=== PATIENT | male | born 1980 | race Caucasian/White ===

== ENCOUNTER 2017-06-19 07:06 | Emergency (ER) | payer OTHER ==
[2017-06-19 07:18] VITALS: BP 158/90
--- NOTE | 2017-06-19 08:38 | UC ---
Lincoln Porter Nilda, scribed for Cristiano Mathis MD on 06/19/17 at 0716 . Throat Pain/Nasal Yonatan HPI - HPI Summary HPI Summary: This patient is a 36 year old M [place] [facility] [place] chief complaint of constant sinus pressure and congestion for the past 2 weeks. The patient rates the pain 6/10 in severity. Symptoms aggravated and alleviated by nothing. Patient reports headache (forehead and behind left eye). - History of Current Complaint Stated Complaint: SINUS CONGESTION, AND FACIAL PAIN Time Seen by Provider: 06/19/17 07:10 Hx Obtained From: Patient Onset/Duration: Sudden Onset, Lasting Weeks Severity: Moderate Pain Intensity: 4 Pain Scale Used: 0-10 Numeric Associated Signs & Symptoms: Positive: Other - headache, sinus pressure and congestion - Allergies/Home Medications Allergies/Adverse Reactions: Allergies Allergy/AdvReac Type Severity Reaction Status Date / Time No Known Allergies Allergy Verified 06/19/17 07:15 PMH/Surg Hx/FS Hx/Imm Hx Previously Healthy: Yes - Surgical History Surgical History: Yes Surgery Procedure, Year, and Place: left ankle reconstructive surgery 2010 - Family History Known Family History: Negative: Cardiac Disease, Hypertension, Diabetes - Social History Alcohol Use: None Substance Use Type: None Smoking Status (MU): Current Every Day Smoker Type: Cigarettes Amount Used/How Often: 1/2-1 pdd Length of Time of Smoking/Using Tobacco: 15 years Have You Smoked in the Last Year: Yes Review of Systems ENT: Sinus Congestion, Sinus Pain/Tenderness Neurological: Headache All Other Systems Reviewed And Are Negative: Yes Physical Exam Triage Information Reviewed: Yes Vital Signs: Initial Vital Signs Temp 97.4 F 06/19/17 07:16 Pulse 76 06/19/17 07:16 Resp 18 06/19/17 07:16 BP 158/90 06/19/17 07:16 Pulse Ox 99 06/19/17 07:16 Vital Signs Reviewed: Yes - Additional Comments VITAL SIGNS: Reviewed. GENERAL: Patient is a well developed and nourished M who is lying comfortable in the stretcher. Patient is not in any acute respiratory distress. HEAD AND FACE: Normocephalic EYES: PERRLA, EOMI x 2. EARS: Hearing grossly intact. MOUTH: Pharyngeal erythema, Swelling meatus of left nostril, Tenderness in left maxillary and ethmoid sinuses NECK: Supple, trachea is midline, no adenopathy, no JVD, no carotid bruit. CHEST: Symmetric, no tenderness at palpation LUNGS: Clear to auscultation bilaterally. No wheezing or crackles. CVS: Regular rate and rhythm, S1 and S2 present, no murmurs or gallops appreciated. ABDOMEN: Soft, non-tender. Bowel sounds are normal. No abdominal abnormal pulsations. EXTREMITIES: Full ROM in all major joints, no edema, no cyanosis or clubbing. NEURO: Alert and oriented x 3. No acute neurological deficits. Speech is normal and follows commands. SKIN: Dry and warm Throat Pain/Nasal Course/Dx - Course Assessment/Plan: This patient is a 36 year old M [place] [facility] [place] chief complaint of constant sinus pressure and congestion for the past 2 weeks. The patient rates the pain 6/10 in severity. Symptoms aggravated and alleviated by nothing. Patient reports headache (forehead and behind left eye). Medications given. The patient is hemodynamically stable, alert and oriented x3. I discussed all the findings and test results with the patient. Pt was instructed to return to the urgent care or go to ER immediately if any of the symptoms return or worsens. Plan of care was discussed with the patient and pt understands and agrees. All questions were answered to patient satisfaction. There were no further complaints or concerns. - Differential Dx/Diagnosis Differential Diagnosis/HQI/PQRI: Influenza, Laryngitis, Otitis Media, Pharyngitis, Sinusitis, Tonsillitis, URI Provider Diagnoses: Acute sinusitis Discharge - Discharge Plan Condition: Stable Disposition: HOME Prescriptions: Amoxicillin PO (*) [Amoxicillin 875 MG (*)] 875 mg PO BID #20 tab Patient Education Materials: Sinusitis (ED) Referrals: No Primary Care Phys,NOPCP [Primary Care Provider] - Additional Instructions: Take medications as instructed Increase your fluid intake Return to the UC if symptoms worsen The documentation as recorded by the Lincoln rich Nilda accurately reflects the service I personally performed and the decisions made by me, Cristiano Mathis MD.
== END 2017-06-19 07:26 | disposition home or self-care (01) ==
LOC: UCEAST 07:06
DX: J01.90 Acute sinusitis, unspecified (principal); F17.210 Nicotine dependence, cigarettes, uncomplicated
CPT/HCPCS: 99212; G0463

== ENCOUNTER 2017-10-10 12:58 | Emergency (ER) | payer OTHER ==
[2017-10-10] MEDS ORDERED: NS 0.9% 1000 ML* 1,000 ML IV ONE (13:13)
[2017-10-10] MEDS ORDERED: Morphine VIAL* 4 MG/ML VIAL (1 ml vial) IV ONE ×3 (13:44→14:41)
--- NOTE | 2017-10-10 13:53 | RAD ---
INDICATION: Left upper extremity injury after falling off a roof COMPARISON: None TECHNIQUE: PA and lateral views of the chest were obtained. FINDINGS: The heart and mediastinum are normal in size and contour. The lungs are grossly clear. There is no evidence of large pleural effusion. Visualized bones are normal for the patient's age. There is no radiographic evidence of free air beneath the diaphragm IMPRESSION: No radiographic evidence of acute cardiopulmonary disease.
--- NOTE | 2017-10-10 14:00 | RAD ---
INDICATION: Left upper extremity pain after falling off of a roof TECHNIQUE: 2 views of the left forearm and 3 views of the left wrist were obtained. FINDINGS: The left humerus is intact. Within the limited AP and lateral views provided the left shoulder and elbow appear to be intact and appropriately aligned. There is a comminuted impacted fracture of the distal left radius. The carpal bones are displaced dorsally relative to the distal radius. The lunate bone is angulated in the dorsal direction on the lateral view. There is cortical irregularity along the dorsal margin of the triquetrum. Although the pisiform appears to be in appropriate expected location the capitate and hamate appear to be displaced in the dorsal direction. IMPRESSION: 1. Comminuted and dorsally angulated fracture involving the distal left radius. 2. There is likely fracture along the proximal dorsal margin of the triquetrum. 3. Displacement of the carpal bones dorsally relative to the distal forearm bones indicates traumatic rupture of ligamentous attachments. If the patient's symptoms persist, follow-up imaging is recommended.
--- NOTE | 2017-10-10 14:16 | ED ---
Maria Dolores Porter Julia, scribed for Cristiano Mathis MD on 10/10/17 at 1325 . Adult Trauma - HPI Summary HPI Summary: This patient is a 37 year old M presenting to [facility] accompanied by his father after falling 18-20 feet off a roof onto his left side on concrete. He was not wearing a harness and was able to walk after the fall. He reports left arm pain , chest pain, right sided abdominal pain, and mild SOB. Denies LOC, neck pain, or head injury. - History of Current Complaint Stated Complaint: LT ARM INJURY Hx Obtained From: Patient Mechanism of Injury: Fall - from 18-20 ft off a roof Ambulatory at the Scene: Yes Loss of Consciousness: no loss of consciousness Force: High Restraints: None Onset/Duration: Started Minutes Ago Onset of Pain: Immediate Location: Chest, Abdomen/Pelvis, Extremities Alleviating Factor(s): Nothing Associated Signs & Symptoms: Positive: SOB, Chest Pain, Abdominal Pain. Negative: Loss of Consciousness - Allergy/Home Medications Allergies/Adverse Reactions: Allergies Allergy/AdvReac Type Severity Reaction Status Date / Time No Known Allergies Allergy Verified 06/19/17 07:15 PMH/Surg Hx/FS Hx/Imm Hx Endocrine/Hematology History: Denies: Hx Diabetes, Hx Thyroid Disease Cardiovascular History: Denies: Hx Hypertension Respiratory History: Denies: Hx Asthma, Hx Chronic Obstructive Pulmonary Disease (COPD) GI History: Denies: Hx Ulcer - Surgical History Surgery Procedure, Year, and Place: left ankle reconstructive surgery 2010 Infectious Disease History: Denies: Hx Hepatitis, Hx Human Immunodeficiency Virus (HIV) - Family History Known Family History: Positive: Cardiac Disease - Social History Alcohol Use: None Substance Use Type: Reports: None Smoking Status (MU): Current Every Day Smoker Type: Cigarettes Amount Used/How Often: 1/2-1 pdd Length of Time of Smoking/Using Tobacco: 15 years Have You Smoked in the Last Year: Yes Review of Systems Positive: Chest Pain Positive: Shortness Of Breath Positive: Abdominal Pain Musculoskeletal: Negative - neck pain Positive: Myalgia - R arm Negative: Headache, Syncope All Other Systems Reviewed And Are Negative: Yes Physical Exam - Summary Physical Exam Summary: VITAL SIGNS: Reviewed. GENERAL: Patient is a well-developed and nourished male who is lying comfortable in the stretcher. Patient is not in any acute respiratory distress. HEAD AND FACE: No signs of trauma. No ecchymosis, hematomas or skull depressions. No sinus tenderness. EYES: PERRLA, EOMI x 2, No injected conjunctiva, no nystagmus. EARS: Hearing grossly intact. Ear canals and tympanic membranes are within normal limits. MOUTH: Oropharynx within normal limits. NECK: Supple, trachea is midline, no adenopathy, no JVD, no carotid bruit, no c- spine tenderness, neck with full ROM. CHEST: Symmetric, left sided chest tenderness LUNGS: Clear to auscultation bilaterally. No wheezing or crackles. CVS: Regular rate and rhythm, S1 and S2 present, no murmurs or gallops appreciated. ABDOMEN: Soft, right sided abdominal tenderness. No signs of distention. No rebound no guarding, and no masses palpated. Bowel sounds are normal. EXTREMITIES: Tenderness and swelling of left forearm, no deformity NEURO: Alert and oriented x 3. No acute neurological deficits. Speech is normal and follows commands. SKIN: Dry and warm Triage Information Reviewed: Yes Vital Signs On Initial Exam: Initial Vitals BP 144/79 10/10/17 13:37 Vital Signs Reviewed: Yes Diagnostics - Vital Signs Vital Signs Pulse BP Pulse Ox 10/10/17 13:42 73 98 10/10/17 13:37 144/79 - Laboratory Lab Statement: Any lab studies that have been ordered have been reviewed, and results considered in the medical decision making process. Adult Trauma Course/Dx - Course Assessment/Plan: The patient fell from approximately 18-20 feet above the ground onto left side. He doesnt have any head trauma or neck trauma. In physical exam there is no C spine tenderness, therefore I did not place and c- collar. FAST exam is negative. Since the patient has chest pain and abdominal pain and the toro of the trauma I believe patient should be transfer to a trauma center for further assessment even though the fast exam is likely negative. Discussed with Vic Ruiz MD at [facility] who accepted for admission at 13:20. CXR is negative for PTX. Humerus XR is negative for fracture. Forearm XR reveals distal radial fracture and he was placed in wrist splint. Vital signs are stable. He has two IV assesses with fluids running; therefore I believe he is safe for transport via ambulance. Before transfer patient is hemodynamically stable. Patient agrees to be transferred to a trauma center. - Diagnoses Provider Diagnoses: Distal radial fracture, Trauma - Critical Care Time Critical Care Time: 30-74 min Discharge - Sign-Out/Discharge Documenting (check all that apply): Discharge/Admit/Transfer - transfer - Discharge Plan Condition: Stable Disposition: TRANS HIGHER LVL OF CARE FAC Referrals: No Primary Care Phys,NOPCP [Primary Care Provider] - - Billing Disposition and Condition Condition: STABLE Disposition: Trans Higher Lvl of Care Fac The documentation as recorded by the Maria Dolores rich Julia accurately reflects the service I personally performed and the decisions made by Del ohara Walter, MD.
[2017-10-10 14:47] VITALS: BP 144/91
== END 2017-10-10 14:47 | disposition short-term general hospital (02) ==
LOC: ED 12:58
DX: S52.502A Unspecified fracture of the lower end of left radius, initial encounter for closed fracture (principal); R06.02 Shortness of breath; R07.9 Chest pain, unspecified; R10.9 Unspecified abdominal pain; F17.210 Nicotine dependence, cigarettes, uncomplicated; W11.XXXA Fall on and from ladder, initial encounter; Y92.9 Unspecified place or not applicable
CPT/HCPCS: 71046; 99284; J2270

== ENCOUNTER 2017-10-18 08:36 | Day surgery (SDC) | payer OTHER ==
[~2017-10-18 08:36] MED LIST: Buffered Lidocaine 0.9% SYRIN* 5 ML/SYR SYRINGE INTRADERM ONE; Bupivacaine 0.5% SDV PF* 30ML VIAL ONE; Famotidine IV* 10 MG/ML 2 ML (20 mg) IV ONE
[2017-10-18] MEDS ORDERED: Buffered Lidocaine 0.9% SYRIN* 5 ML/SYR SYRINGE ONE (08:43)
[2017-10-18] MEDS ORDERED: ceFAZolin 2 GM PREMIX (*) 2 GM/50 ML BAG IVPB ONE (08:43)
[2017-10-18] MEDS ORDERED: Famotidine IV* 10 MG/ML 2 ML (20 mg) ONE (08:43)
[2017-10-18] MEDS ORDERED: Midazolam* 1 MG/ML 5 ML VIAL (5 MG) ONE (11:34)
[2017-10-18] MEDS ORDERED: fentaNYL* 50 MCG/ML 2 ML VIAL (100 MCG VIAL) ONE ×3 (11:34→12:54)
[2017-10-18] MEDS ORDERED: Ketorolac INJ* 30 MG/ML 1 ML VIAL ONE (12:54)
[2017-10-18] MEDS ORDERED: DiMENhydriNATE IV* 50 MG/ML VIAL ONE (12:54)
[2017-10-18] MEDS ORDERED: Propofol* 10 MG/ML 20 ML BTL IV PUSH ONE (12:54)
[2017-10-18] MEDS ORDERED: Dexamethasone IV* 4 MG/ML 1 ML (4 MG) ONE (12:54)
[2017-10-18] MEDS ORDERED: Midazolam* 1 MG/ML 2 ML VIAL (2 MG) ONE (12:58)
[2017-10-18] MEDS ORDERED: HYDROmorphone INJ* 0.5 MG/0.5 ML SYRINGE ONE ×3 (13:21→16:01)
[2017-10-18] MEDS ORDERED: HYDROmorphone INJ* 1 MG/ML CARPUJECT SYRINGE IV PRN (14:22)
[2017-10-18] MEDS ORDERED: Naloxone* 0.4 MG/ML 1 ML VIAL IV PRN (14:22)
[2017-10-18] MEDS ORDERED: oxyCODONE/Acetamin 5/325 MG* TAB PO PRN (14:22)
[2017-10-18] MEDS ORDERED: Ondansetron INJ* 2 MG/ML VIAL IV PRN (14:23)
[2017-10-18 17:50] VITALS: BP 162/99
--- NOTE | 2017-10-19 07:11 | RAD ---
INDICATION: Traumatic fracture of the left wrist, operative reduction and internal fixation. COMPARISON: Comparison is made with a prior x-ray study of the left wrist from October 12, 2017. TECHNIQUE: 1.26 seconds of intermittent fluoroscopic guidance were provided and 3 spot films of the left wrist were obtained in the operating room. FINDINGS: The films demonstrate placement of metallic plates along the dorsal and volar aspect of the distal radius transfixed with multiple screws spanning the fracture fragments. IMPRESSION: INTRAOPERATIVE CONTROL FILMS. CPT II Codes: G9500
--- NOTE | 2017-10-19 14:29 | OP ---
DATE OF OPERATION: 10/18/17 - [facility] DATE OF : 82 SURGEON: Jose Langford MD JD EDWARDS CONSULTANT: YESENIA Orellana. An optometrist assistant was needed for the procedure to aid in positioning of the arm and retraction. ANESTHESIOLOGIST: Dr. Morillo. ANESTHESIA: General. PRE-OP DIAGNOSIS: Displaced very distal extremely comminuted intraarticular left distal radius fracture. POST-OP DIAGNOSIS: Displaced very distal extremely comminuted intraarticular left distal radius fracture. OPERATIVE PROCEDURE: Open reduction internal fixation, left intraarticular, mini fragments distal radius fracture. Please note that this operation was substantially more difficult than typical distal intraarticular distal radius fracture requiring both volar and dorsal approaches, volar and dorsal plating. ESTIMATED BLOOD LOSS: 15 mL. COMPLICATIONS: None. FINDINGS: See above and below. DESCRIPTION OF PROCEDURE: Zac was seen in the preoperative holding area. The correct side, site, and procedure were identified. We came back to the operating room where the arm was prescrubbed and prepped and draped and a time- out was performed. I began by exsanguinating the arm with the Esmarch and the tourniquet was inflated to 250 mmHg. I then made a longitudinal incision over the volar aspect of the wrist. Dissection was carried down to the FCR tendon sheath. This was opened. The tendon was retracted ulnarly. The subsheath was opened. The FPL tendon was retracted ulnarly and the pronator quadratus was released off the radial aspect of the distal radius. Distally, it was torn apart. The fracture came very distal. It came back a little bit more proximal with respect to the volar ulnar fragment centrally and radially, it was quite distal. I went ahead and irrigated out and removed all the fracture hematoma. Once I had a nice clean fracture edges and I had taken very care to preserve the last couple of millimeters of volar capsular ligaments, I was able to place the hand in the Arthrex hand rand and applied 10 pounds of inline traction. The [place] was used to disimpact the volar ulnar fragment and volar fragments to rotate at 90 degrees with the articular surface facing the dorsal aspect of the wrist. Once I disimpacted these and rotated them back into place, I was able to bring in my Synthes distal radius plate and screws. I had both the standard volar plates available as well as the volar rim plate. Ultimately, I thought that on the ulnar aspect it came back proximal enough, so I did not need to use the volar rim plate. I went ahead and put my volar plate in place. I pinned it into place. I placed one 10-mm locking screw in that volar ulnar fragment just to hold that fragment apposed to the bone. The dorsal half of the joint was still very mal-reduced and the articular surface did not have secondary congruence and so therefore we had to open up the joint dorsally. At this point, the forearm was rotated and pronated. I made a longitudinal incision over the dorsum of the wrist. Full-thickness flaps were raised up the extensor retinaculum. The extensor retinaculum was opened over the third dorsal compartment. The EPL tendon was transposed. Subperiosteal flaps were created and fourth dorsal compartment tendons were retracted ulnarly. Second dorsal compartment tendons were retracted radially. I made a transverse capsulotomy just off the distal aspect of the distal radius. The fracture hematoma was again irrigated out and removed. The joint was irrigated out until I had a good view of the articular pieces. The biggest issue was that they were severely impacted, so I went ahead and disimpacted those. Once I had that done and then back up in the reduced position, there was quite a bit of void left and nothing to really hold that dorsal piece in the reduced position. I took 15 mL of cancellous allograft chips. These were crushed up and packed into the void to aid in provisional fixation to keep that dorsal piece wrapped up into place. I then closed the cortical piece back dorsally over the allograft. I wanted to buttress everything in place, so I took a Synthes dorsal distal radius L-shaped plate and placed this into the appropriate location. This was clamped into place. I did a very nice job buttressing the fragments. I then placed a couple of cortical screws proximally to secure the buttress plate. Ultimately, this held the dorsal pieces in quite nicely into the appropriate location. At this point, I turned my attention back into the volar wound. I re-exposed the volar aspect, the pins I had placed previously to hold the plate in place and I had clipped those pins in order to allow myself to work dorsally. I went ahead and removed those pins with the needle regional tanker truck driver. The position of the plate was adjusted as it was sitting too distal. I did take the screw out that I had put in distally and then moved the plate a little more proximally and then pinned it into place. When I had this nicely reduced, I went ahead and clamped one plate into place proximally with a lobster claw clamp. I then used the straight nominal angle guide to place my ulnar for screws. The variable angle guide was used to place the radial styloid screw aiming the screw up towards the tip of the radius styloid. Really, the bone was so fragmented on the radial third that there was really was not much purchase at all on any of the screws. That radial side was simply extremely comminuted. I had good bone to work with the ulnar sided screws. At this point, I went ahead and placed my two more proximal screws as the plate was in good position. I then brought in my mini C- arm fluoroscopy. Ultimately, when I had placed the two more radial-sided screws , it had displaced my dorsal radial scaphoid facet piece, which was a decent size fragment. I therefore backed up my volar screws about half length of screw each. At this point, the tourniquet was at 2-1/2 hours, so we went ahead and let the tourniquet down. We held some compression on the wounds for about 5 to 10 minutes. We then decided to work without the tourniquet up. I went ahead and reduced the dorsal pieces again. I pinned them into place at this time. I then redrilled and replaced my screws through the distal row of the volar plate. The dorsal ulnar fragment was quite rotated. It was not really to take his screw, but I was able to suture fix it with FiberWire to my dorsal plate and around that dorsal ulnar fragment now rotated back into place nicely. That was an 0 FiberWire suture. The fixation on the volar lip was augmented with an 0 FiberWire suture, sewn up into the capsular ligament and down around the plate proximally so as to try to prevent any volar escape. At this point, we got plantar fluoroscopic imaging, everything was looking very nice, the reduction was quite nice. The articular surface was nicely congruent. The direct observation of the articular surface through the dorsal capsulotomy showed nice articular reduction. Everything was irrigated out. The extensor retinaculum was closed dorsally with 4-0 Ethibond sutures. The pronator quadratus was reapproximated with 2-0 Vicryl sutures. Skin was closed with baudilio. The wounds were infiltrated with 0.25% plain Marcaine. The wounds were dressed with Xeroform, 4x4s, sterile Webril, and a dorsal and volar plaster slabs were applied and a cock-up splint was applied. Tourniquet was never reinflated after it was let down. The hand was nice and pink. He was awoken up and taken to the recovery room in stable condition. [id number]/[facility] #: [id number] LISA
== END 2017-10-18 17:58 | disposition home or self-care (01) ==
LOC: OR 08:36
PROVIDERS: ATTEND Orthopaedic Surgery Hand Surgery
DX: S52.572A Other intraarticular fracture of lower end of left radius, initial encounter for closed fracture (principal); I10 Essential (primary) hypertension; F17.210 Nicotine dependence, cigarettes, uncomplicated; X58.XXXA Exposure to other specified factors, initial encounter
CPT/HCPCS: 76000; C1713; C1776; J0690; J1100; J1170; J1240; J1885; J2250; J2704; J3010

== ENCOUNTER → 2018-02-21 14:45 | Day surgery (SDC) | payer OTHER ==
[~2018-02-21 14:45] MED LIST changes: +Buffered Lidocaine 0.9% SYRIN* 5 ML/SYR SYRINGE ONE; +Bupivacaine 0.25% SDV* 30 ML ONE; -Bupivacaine 0.5% SDV PF* 30ML VIAL ONE; +Dexamethasone IV* 4 MG/ML 1 ML (4 MG) IV SLOW PU ONE; +Dexamethasone IV* 4 MG/ML 1 ML (4 MG) ONE; +DiMENhydriNATE IV* 50 MG/ML VIAL IV PUSH PRN; +Famotidine IV* 10 MG/ML 2 ML (20 mg) ONE; +HYDROmorphone INJ1* 1 MG/ML SYRINGE IV PRN; +Ketorolac INJ* 30 MG/ML 1 ML VIAL ONE; +Levalbuterol 0.63MG/3ML NEB* UNIT OF USE INH ONE; +Levalbuterol 0.63MG/3ML NEB* UNIT OF USE INH SCH; +Lidocaine 2% PF * 5 ML VIAL ONE; +Midazolam* 1 MG/ML 5 ML VIAL (5 MG) ONE; +Naloxone* 0.4 MG/ML 1 ML VIAL IV PRN; +Ondansetron INJ* 2 MG/ML VIAL IV PRN; +Ondansetron INJ* 2 MG/ML VIAL ONE; +Propofol* 10 MG/ML 20 ML BTL IV PUSH ONE; +ceFAZolin 2 GM PREMIX in ORs 2 GM/50 ML BAG IVPB ONE; +fentaNYL* 50 MCG/ML 2 ML VIAL (100 MCG VIAL) IV PRN; +fentaNYL* 50 MCG/ML 2 ML VIAL (100 MCG VIAL) ONE; +fentaNYL* 50 MCG/ML 5 ML VIAL (250 MCG VIAL) ONE; +oxyCODONE/Acetamin 5/325 MG* TAB ONE; +oxyCODONE/Acetamin 5/325 MG* TAB PO PRN
[2018-02-21 15:46] VITALS: BP 134/92
--- NOTE | 2018-02-28 09:54 | OP ---
OPERATIVE REPORT: DATE OF OPERATION: 02/21/18 DATE OF : 82 SURGEON: Jose Langford MD REAMING MACHINE TENDER: YESENIA Orellana ANESTHESIA: General. PRE-OP DIAGNOSIS: Retained very distal and symptomatic hardware, left distal radius including both d orsal and volar plates. POST-OP DIAGNOSIS: Retained very distal and symptomatic hardware, left distal radius including both dorsal and volar plates. OPERATIVE PROCEDURE: 1. Removal of left distal radius volar plate and screws. 2. Removal of left distal radius dorsal plate and screws through a separate incision. INDICATIONS: Zac had a severely comminuted high-energy distal radius fracture treated with open r eduction internal fixation several months ago. The fracture is now healed. The plates are so distal that he is at very high risk for tendon rupture as well as they do cause some discomfort, so we talk ed about risks and benefits and we decided to come back and remove the plates and screws. He underst ands that both incisions will have to be reopened as there is a plate on the volar side of the bone a nd another plate on the dorsal side of the bone. ESTIMATED BLOOD LOSS: 2 mL. COMPLICATIONS: None. FINDINGS: See above and below. DESCRIPTION OF PROCEDURE: Zac was seen in the preoperative holding area. The correct site, side, and procedure were identified. We came back to the operating room where the arm was prepped and guero ped in the usual fashion. A time-out was performed. I first reopened his prior volar incision over the FCR tendon. Dissection was carried down. The FCR tendon was freed up from any adhesions and retracted ulnarly. The scarred-in subsheath was reopened . The FPL tendon was retracted ulnarly. The pronator was again released off its radial margin and t eed back distally. The plate was exposed. A screwdriver was used to remove all the screws uneventfu lly. The small osteotome was used to free up the plate and this was removed. All the sharp bony edg es were excised with a rongeur. I then irrigated out the wound. The pronator was reapproximated wit h 3-0 Vicryl suture. The skin was closed with 3-0 Monocryl suture. I then turned my attention to the dorsum of the wrist. I reopened his dorsum incision which was a lo ngitudinal midline incision. Dissection was carried down and full thickness flaps were raised off th e scarred retinaculum. The prior suture line was identified and I reopened the extensor retinaculum in the same location where I had opened it prior. The EPL tendon was already transposed. I went ahe ad and exposed the plate dorsally. The screwdriver was used to remove all the screws and then the os teotome was used to remove the plate. Again, the bony edges were all cleaned up and debrided with a rongeur back to a nice smooth flat bony surface. Everything was looking good at this point, so we irr igated out the wound. The retinaculum was re-closed with 4-0 Prolene suture, the skin was closed wit h 3-0 Monocryl suture and Steri-Strips. All the operative areas were infiltrated with long-acting lo nereyda anesthetic. Wounds were then dressed and a cockup wrist splint was applied. The tourniquet was deflated. He was taken to the recovery room in stable condition. [id number]/[id number] #: [id number]
== END | disposition home or self-care (01) ==
LOC: OR 14:45
PROVIDERS: ATTEND Orthopaedic Surgery Hand Surgery
DX: T84.84XA Pain due to internal orthopedic prosthetic devices, implants and grafts, initial encounter (principal); Y83.1 Surgical operation with implant of artificial internal device as the cause of abnormal reaction of the patient, or of later complication, without mention of misadventure at the time of the procedure; Z72.0 Tobacco use; Z68.30 Body mass index [BMI] 30.0-30.9, adult; S52.572D Other intraarticular fracture of lower end of left radius, subsequent encounter for closed fracture with routine healing; X58.XXXD Exposure to other specified factors, subsequent encounter; Y92.9 Unspecified place or not applicable
CPT/HCPCS: 88300; A9270-GY; J0690; J1100; J1885; J2250; J2405; J2704; J3010

== ENCOUNTER 2018-07-05 16:49 | Emergency (ER) | payer OTHER ==
[2018-07-05 16:57] VITALS: BP 168/105
--- NOTE | 2018-07-05 17:59 | ED ---
Respiratory - HPI Summary HPI Summary: 37 yr old male with complaint of runny nose, post nasal drip, coughing, muscle aches and fatigue. He feels that he came down with the flu last week, but he is concerned about the persistent productive cough and left maxillary sinus pressure and pain. He has pain with coughing heavily. No SOB. No other complaints. - History of Current Complaint Chief Complaint: UCGeneralIllness Stated Complaint: COUGH Time Seen by Provider: 07/05/18 17:26 Pain Intensity: 0 - Allergy/Home Medications Allergies/Adverse Reactions: Allergies Allergy/AdvReac Type Severity Reaction Status Date / Time enoxaparin [From Lovenox] Allergy SEVERE Verified 07/05/18 16:57 HEADACHES Home Medications: Home Medications Ibuprofen TAB* [Advil TAB*] 400 mg PO Q6H PRN 07/05/18 [History Confirmed ] PMH/Surg Hx/FS Hx/Imm Hx Endocrine/Hematology History: Denies: Hx Diabetes, Hx Thyroid Disease Cardiovascular History: Reports: Hx Hypertension - elevated at times- no medication for Denies: Hx Pacemaker/ICD Respiratory History: Denies: Hx Asthma, Hx Chronic Obstructive Pulmonary Disease (COPD) GI History: Denies: Hx Ulcer History: Reports: Hx Kidney Stones - AT AGE 24 Sensory History: Reports: Hx Contacts or Glasses - GLASSES Denies: Hx Hearing Aid Opthamlomology History: Reports: Hx Contacts or Glasses - GLASSES - Surgical History Surgery Procedure, Year, and Place: left ankle reconstructive surgery 2010. LEFT WRIST SURGERY Hx Anesthesia Reactions: No Infectious Disease History: No Infectious Disease History: Denies: Hx Hepatitis, Hx Human Immunodeficiency Virus (HIV), Traveled Outside the [place] in Last 30 Days - Family History Known Family History: Positive: Cardiac Disease Negative: Hypertension, Diabetes - Social History Occupation: Employed Full-time Alcohol Use: None Substance Use Type: Reports: None Substance Use Comment - Amount & Last Used: VERY RARELY Smoking Status (MU): Heavy Every Day Tobacco Smoker Type: Cigarettes Amount Used/How Often: 1/2 PPD Length of Time of Smoking/Using Tobacco: 15 years Have You Smoked in the Last Year: Yes Review of Systems Positive: Fever, Chills Positive: Nasal Discharge, Other - sinus pressure Positive: Other - pain with couhg Positive: Cough All Other Systems Reviewed And Are Negative: Yes Physical Exam Triage Information Reviewed: Yes Vital Signs On Initial Exam: Initial Vitals Temp Pulse Resp BP Pulse Ox 97 F 80 16 168/105 100 07/05/18 16:54 07/05/18 16:54 07/05/18 16:54 07/05/18 16:54 07/05/18 16:54 Vital Signs Reviewed: Yes Appearance: Positive: Well-Appearing, No Pain Distress Skin: Positive: Warm, Skin Color Reflects Adequate Perfusion Head/Face: Positive: Normal Head/Face Inspection Eyes: Positive: EOMI, LUCINDA ENT: Positive: Pharynx normal, Nasal congestion, TMs normal, Sinus tenderness Respiratory/Lung Sounds: Positive: Clear to Auscultation, Breath Sounds Present Cardiovascular: Positive: RRR. Negative: Murmur, Rub Abdomen Description: Positive: Nontender Musculoskeletal: Positive: Strength/ROM Intact Neurological: Positive: Sensory/Motor Intact, Alert, Oriented to Person Place, Time, CN Intact II-III, Normal Gait, Speech Normal Psychiatric: Positive: Normal - Pamela Coma Scale Best Eye Response: 4 - Spontaneous Best Motor Response: 6 - Obeys Commands Best Verbal Response: 5 - Oriented Coma Scale Total: 15 Diagnostics - Vital Signs Vital Signs Temp Pulse Resp BP Pulse Ox 07/05/18 16:54 97 F 80 16 168/105 100 - Laboratory Lab Statement: Any lab studies that have been ordered have been reviewed, and results considered in the medical decision making process. - Radiology chest pa lat Radiology Interpretation Completed By: Radiologist - No pneumonia reported. Question of atelectasis left base. Disposition - Course Course Of Treatment: Sinusitis Rx with Augmentin - Diagnoses Provider Diagnoses: Sinusitis, Elevated blood pressure reading Discharge - Sign-Out/Discharge Documenting (check all that apply): Patient Departure All imaging exams completed and their final reports reviewed: Yes - Discharge Plan Condition: Good Disposition: HOME Prescriptions: Albuterol HFA INHALER* [Ventolin HFA Inhaler*] 1 - 2 puff INH Q6H PRN #1 mdi PRN Reason: Cough Amoxicillin/Clavulanate TAB* [Augmentin TAB 875*] 875 mg PO BID #20 tab Patient Education Materials: Sinusitis (ED), Hypertension (ED), Acute Bronchitis (ED) Referrals: No Primary Care Phys,NOPCP [Primary Care Provider] - [facility] [place]] - 2 Days - Billing Disposition and Condition Condition: GOOD Disposition: Home
== END 2018-07-05 18:10 | disposition home or self-care (01) ==
LOC: UCEAST 16:49
DX: J32.9 Chronic sinusitis, unspecified (principal); I10 Essential (primary) hypertension; F17.210 Nicotine dependence, cigarettes, uncomplicated
CPT/HCPCS: 71046; 99212; G0463

== ENCOUNTER 2019-01-26 09:24 | Emergency (ER) | payer OTHER ==
[2019-01-26 09:29] VITALS: BP 142/95
--- NOTE | 2019-01-26 10:02 | UC ---
Throat Pain/Nasal Yonatan HPI - HPI Summary HPI Summary: 38-year-old male comes in with a chief complaint of upper respiratory tract infection symptoms for 5 - 6 days. Patient's had rhinorrhea is colored. He's having sinus pressure. Also does have some chest congestion. Is a smoker. He has been using Afrin which initially helped but now he feels like it's made his sinuses worse. Has been waking up with sweats and having chills. Also took some ibuprofen which did help initially but it's no longer helping. - History of Current Complaint Chief Complaint: UCRespiratory Stated Complaint: SINUS AND CHEST CONGESTION Time Seen by Provider: 01/26/19 09:48 Pain Intensity: 4 - Allergies/Home Medications Allergies/Adverse Reactions: Allergies Allergy/AdvReac Type Severity Reaction Status Date / Time enoxaparin [From Lovenox] Allergy SEVERE Verified 07/05/18 16:57 HEADACHES PMH/Surg Hx/FS Hx/Imm Hx Previously Healthy: Yes - Surgical History Surgical History: Yes Surgery Procedure, Year, and Place: left ankle reconstructive surgery 2010. LEFT WRIST SURGERY - Family History Known Family History: Positive: Cardiac Disease Negative: Hypertension, Diabetes - Social History Alcohol Use: None Substance Use Type: None Substance Use Comment - Amount & Last Used: VERY RARELY Smoking Status (MU): Heavy Every Day Tobacco Smoker Type: Cigarettes Amount Used/How Often: 1/2 PPD Length of Time of Smoking/Using Tobacco: 15 years Have You Smoked in the Last Year: Yes Review of Systems All Other Systems Reviewed And Are Negative: Yes Constitutional: Positive: Other - SEE HPI Skin: Positive: Negative Eyes: Positive: Negative ENT: Positive: Sore Throat, Nasal Discharge, Sinus Congestion, Sinus Pain/ Tenderness Respiratory: Positive: Other - SEE HPI Cardiovascular: Positive: Other - SEE HPI Gastrointestinal: Positive: Negative Motor: Positive: Negative Neurovascular: Positive: Negative Musculoskeletal: Positive: Negative Neurological: Positive: Negative Psychological: Positive: Negative Is Patient Immunocompromised?: No Physical Exam Triage Information Reviewed: Yes Appearance: No Pain Distress, Well-Nourished, Ill-Appearing - MILD Vital Signs: Initial Vital Signs Temp 98.2 F 01/26/19 09:26 Pulse 95 01/26/19 09:26 Resp 16 01/26/19 09:26 BP 142/95 01/26/19 09:26 Pulse Ox 100 01/26/19 09:26 Vital Signs Reviewed: Yes Eye Exam: Normal Eyes: Positive: Conjunctiva Clear ENT: Positive: Pharyngeal erythema, Nasal congestion, Nasal drainage, TMs normal Neck: Positive: Supple Respiratory: Positive: Lungs clear, Normal breath sounds, No respiratory distress Cardiovascular: Positive: RRR Musculoskeletal: Positive: Strength Intact, ROM Intact Neurological: Positive: Alert, Muscle Tone Normal Psychological: Positive: Age Appropriate Behavior Skin Exam: Normal Throat Pain/Nasal Course/Dx - Course Course Of Treatment: DISCUSSED VIRAL VERSES BACTERIAL INFECTIONS AND THE ROLE OF ANTIBIOTICS. THE PATIENT PREFERS TO BE ON ANTIBIOTICS AT THIS TIME. - Differential Dx/Diagnosis Provider Diagnosis: Sinusitis Discharge ED - Sign-Out/Discharge Documenting (check all that apply): Patient Departure All imaging exams completed and their final reports reviewed: No Studies - Discharge Plan Condition: Stable Disposition: HOME Prescriptions: Amoxicillin/Clavulanate TAB* [Augmentin TAB 875*] 875 mg PO BID #20 tab Fluticasone NASAL SPRAY 50MCG* [Flonase NASAL SPRAY 50MCG*] 2 spray BOTH NARES DAILY #1 btl Patient Education Materials: Sinusitis (ED) Referrals: [facility] [place]] Additional Instructions: FOLLOW UP WITH YOUR DOCTOR IF NOT COMPLETELY IMPROVED. GET RECHECKED SOONER IF YOUR CONDITION WORSENS OR ANY QUESTIONS OR CONCERNS. - Billing Disposition and Condition Condition: STABLE Disposition: Home
== END 2019-01-26 10:05 | disposition home or self-care (01) ==
LOC: UCEAST 09:24
DX: J32.9 Chronic sinusitis, unspecified (principal); F17.210 Nicotine dependence, cigarettes, uncomplicated
CPT/HCPCS: 99212; G0463